=== PATIENT | female | born 1945 | race African-American/Black ===

== ENCOUNTER 2019-09-21 18:50 | Inpatient (IN) ==
[2019-09-21] MEDS ORDERED: SODIUM CHLORIDE 0.9% 500 ML IV STA (20:34)
[2019-09-21 20:57] LABS: Basophils % 0.4 % (0.0-0.8); Eosinophils # 0.1 10*3/uL (0.0-0.87); Eosinophils % 0.5 % (0.00-10.9); Hematocrit 44.9 VOL% (35.7-47.0); Hemoglobin 14.8 GM/DL (12.0-16.0); Immature Granulocytes % 0.3 %; Immature Granulocytes Absolute 0.03 #; Lymphocytes # 2.4 10*3/uL (1.4-4.0); Mean Corpuscular Volume 81.6 FL (87-102); Mean Platelet Volume 10.2 FL (9.6-12.0); Monocytes % 7.9 % (1.7-12.7); Neutrophils % 64.9 % (38.7-73.9); Platelet Count 237 T/CUMM (130-400); Red Cell Distribution Width 13.8 % (9.3-17.3)
[2019-09-21 20:58] LABS: White Blood Count 9.2 T/CUMM (4-12)
[2019-09-21 21:10] LABS: Albumin 4.3 G/DL (3.4-5.0); Bilirubin,Total 0.6 MG/DL (0.2-1.0); Calcium 9.8 MG/DL (8.5-10.1); Osmolality,Calculated 280.7 MOS/KG (273-304)
[2019-09-21 21:11] LABS: Troponin I 0.114 NG/ML (0.00-0.045)
[2019-09-21 21:54] LABS: Apearance,Urine Slightly Hazy (Clear); Bacteria,Urine Occasional /HPF (Few); Bilirubin,Urine Negative (Negative); Blood, Urine Negative (Negative); Glucose,Urine (UA) Negative (Negative); Hyaline Casts,Urine 52 /LPF (0-3); Ketones,Urine Negative (Negative); Nitrite,Urine Negative (Negative); Protein,Urine Negative; RBC,Urine 1 /HPF (0-4); Squamous Epithelial Cell,Urine Occasional /HPF (0-10); Urine Color Yellow (Yellow); Urine Specific Gravity 1.014 (1.001-1.035); Urine Urobilinogen < 2.0 EU/DL (0.2-1.0); WBC,Urine 1 /HPF (0-6)
[2019-09-21 22:02] LABS: Barbiturates Screen,Urine Negative (Negative); Benzodiazepines Screen,Urine Negative (Negative); Cannabinoid Screen,Urine Negative (Negative); Opiate Screen,Urine Positive (Negative); Phencyclidine Screen,Urine Negative (Negative)
[2019-09-21] MEDS ORDERED: GLUCAGON 1 MG VIAL IM PRN (23:34)
[2019-09-21] MEDS ORDERED: ACETAMINOPHEN 325 MG TABLET PO PRN (23:34)
[2019-09-21] MEDS ORDERED: guaiFENesin/DM ER 600-30 MG TABLET PO PRN (23:34)
[2019-09-21] MEDS ORDERED: ZALEPLON 5 MG CAPSULE PO PRN (23:34)
[2019-09-21] MEDS ORDERED: ALBUTEROL 2.5 MG/3 ML NEB RESP TX PRN (23:34)
[2019-09-21] MEDS ORDERED: NICOTINE 21 MG/24 HR PATCH TRANSDERM PRN (23:34)
[2019-09-21] MEDS ORDERED: hydrALAZINE 20 MG/1 ML VIAL IV PRN (23:34)
[2019-09-21] MEDS ORDERED: DOCUSATE SODIUM 100 MG CAPSULE PO PRN (23:34)
[2019-09-21] MEDS ORDERED: ONDANSETRON 4 MG/2 ML VIAL IV PRN (23:34)
[2019-09-21] MEDS ORDERED: DEXTROSE 50% 25 GM/50 ML VIAL IV PRN (23:34)
[2019-09-21] MEDS ORDERED: SODIUM POLYSTYRENE SULFATE 15 GM/60 ML BOTTLE PO ONE (23:38)
[2019-09-21] MEDS ORDERED: CALCIUM GLUCONATE 1,000 MG in SODIUM CHLORIDE 0.9% 100 ML IV ONE (23:39)
[2019-09-22] MEDS: SODIUM CHLORIDE 0.9% 1,000 ML IV SCH ×2 (00:26→09:50)
[2019-09-22 04:45] LABS: Basophils % 0.4 % (0.0-0.8); Eosinophils # 0.1 10*3/uL (0.0-0.87); Eosinophils % 1.2 % (0.00-10.9); Hematocrit 41.7 VOL% (35.7-47.0); Hemoglobin 13.5 GM/DL (12.0-16.0); Immature Granulocytes % 0.4 %; Immature Granulocytes Absolute 0.03 #; Lymphocytes # 1.7 10*3/uL (1.4-4.0); Lymphocytes % 25.1 % (21.3-54.2); Mean Corpuscular HGB Conc 32.4 GM/DL (32-36); Mean Corpuscular Volume 82.1 FL (87-102); Mean Platelet Volume 10.5 FL (9.6-12.0); Monocytes % 5.5 % (1.7-12.7); Neutrophils % 67.4 % (38.7-73.9); Platelet Count 217 T/CUMM (130-400); Red Blood Count 5.08 MC/CUMM (3.8-5.5); Red Cell Distribution Width 13.6 % (9.3-17.3); White Blood Count 6.9 T/CUMM (4-12)
[2019-09-22 05:28] LABS: Albumin 3.6 G/DL (3.4-5.0); Bilirubin,Total 0.8 MG/DL (0.2-1.0); Calcium 9.5 MG/DL (8.5-10.1); Risk Ratio 2.74; Thyroid Stimulating Hormone 2.27 uIU/ml (0.358-3.74); Total Protein 7.2 G/DL (6.4-8.3)
[2019-09-22] MEDS: INSULIN LISPRO 100 UNIT/ML SUBCUT SCH ×4 (08:37→22:00)
[2019-09-22] MEDS: PANTOPRAZOLE 40 MG TABLET PO SCH (08:39)
[2019-09-22] MEDS: HEPARIN 5,000 UNIT/1 ML VIAL SUBCUT SCH ×2 (11:13→22:37)
[2019-09-22] MEDS: DEXTROSE 5% NACL 0.45% 1,000 ML IV SCH ×2 (12:54→22:17)
[2019-09-22] MEDS: amLODIPine 10 MG TABLET PO SCH (16:12)
[2019-09-23 04:53] LABS: Basophils % 0.3 % (0.0-0.8); Eosinophils # 0.1 10*3/uL (0.0-0.87); Eosinophils % 0.8 % (0.00-10.9); Hematocrit 45.9 VOL% (35.7-47.0); Hemoglobin 15.1 GM/DL (12.0-16.0); Immature Granulocytes % 0.3 %; Immature Granulocytes Absolute 0.02 #; Lymphocytes # 1.5 10*3/uL (1.4-4.0); Lymphocytes % 22.9 % (21.3-54.2); Mean Corpuscular HGB Conc 32.9 GM/DL (32-36); Mean Corpuscular Volume 81.7 FL (87-102); Mean Platelet Volume 10.7 FL (9.6-12.0); Monocytes % 7.6 % (1.7-12.7); Neutrophils % 68.1 % (38.7-73.9); Platelet Count 233 T/CUMM (130-400); Red Blood Count 5.62 MC/CUMM (3.8-5.5); Red Cell Distribution Width 13.3 % (9.3-17.3); White Blood Count 6.6 T/CUMM (4-12)
[2019-09-23 05:13] LABS: Calcium 8.5 MG/DL (8.5-10.1); Osmolality,Calculated 280.7 MOS/KG (273-304)
[2019-09-23] MEDS ORDERED: POTASSIUM CHLORIDE 20 MEQ TABLET PO PRN (08:44)
[2019-09-23] MEDS: INSULIN LISPRO 100 UNIT/ML SUBCUT SCH ×2 (09:18→16:17)
[2019-09-23] MEDS: HEPARIN 5,000 UNIT/1 ML VIAL SUBCUT SCH (11:02)
[2019-09-23] MEDS: PANTOPRAZOLE 40 MG TABLET PO SCH (11:02)
[2019-09-23] MEDS: amLODIPine 10 MG TABLET PO SCH (11:02)
[2019-09-23] MEDS: DEXTROSE 5% NACL 0.45% 1,000 ML IV SCH (11:06)
[2019-09-23 16:24] VITALS: BP 162/96
== END 2019-09-23 12:35 | DRG 682 ==
LOC: N.ED 18:50 → N.EDINP 23:34 → N.5E 09-22 01:13
PROVIDERS: ADMIT Internal Medicine; ATTEND Internal Medicine

== ENCOUNTER 2019-11-10 14:25 | Observation (INO) ==
[2019-11-10 15:29] LABS: Basophils # 0.1 10*3/uL (0.0-0.2); Basophils % 0.7 % (0.0-0.8); Eosinophils # 0.1 10*3/uL (0.0-0.87); Eosinophils % 0.8 % (0.00-10.9); Hematocrit 44.8 VOL% (35.7-47.0); Hemoglobin 14.3 GM/DL (12.0-16.0); Immature Granulocytes % 0.3 %; Immature Granulocytes Absolute 0.02 #; Lymphocytes % 27.3 % (21.3-54.2); Mean Corpuscular HGB Conc 31.9 GM/DL (32-36); Mean Corpuscular Volume 82.7 FL (87-102); Mean Platelet Volume 9.7 FL (9.6-12.0); Neutrophils % 63.9 % (38.7-73.9); Platelet Count 283 T/CUMM (130-400); Red Blood Count 5.42 MC/CUMM (3.8-5.5); Red Cell Distribution Width 15.5 % (9.3-17.3); White Blood Count 7.3 T/CUMM (4-12)
[2019-11-10 15:33] LABS: Apearance,Urine CLEAR (Clear); Bacteria,Urine Occasional /HPF (Few); Bilirubin,Urine Negative (Negative); Blood, Urine Small mg/dL (Negative); Glucose,Urine (UA) Negative (Negative); Hyaline Casts,Urine 15 /LPF (0-3); Ketones,Urine 5 mg/dL (Negative); Mucus,Urine Occasional /LPF (Occasional); Nitrite,Urine Negative (Negative); Protein,Urine Negative; RBC,Urine 2 /HPF (0-4); Squamous Epithelial Cell,Urine Occasional /HPF (0-10); Urine Color Yellow (Yellow); Urine Specific Gravity 1.013 (1.001-1.035); Urine Urobilinogen < 2.0 EU/DL (0.2-1.0); WBC,Urine 1 /HPF (0-6)
[2019-11-10 15:52] LABS: Albumin 4.2 G/DL (3.4-5.0); Bilirubin,Total 0.9 MG/DL (0.2-1.0); Calcium 10.1 MG/DL (8.5-10.1); Osmolality,Calculated 286.1 MOS/KG (273-304)
[2019-11-10] MEDS ORDERED: SODIUM CHLORIDE 0.9% 1,000 ML IV STA (16:09)
[2019-11-10 18:42] LABS: Calcium 9.4 MG/DL (8.5-10.1); Osmolality,Calculated 286.1 MOS/KG (273-304)
[2019-11-10] MEDS ORDERED: GLUCAGON 1 MG VIAL IM PRN ×2 (20:25→23:37)
[2019-11-10] MEDS ORDERED: DEXTROSE 10% 250 ML BAG IV PRN (20:25)
[2019-11-10] MEDS ORDERED: ACETAMINOPHEN 325 MG TABLET PO PRN (20:31)
[2019-11-10] MEDS ORDERED: ONDANSETRON 4 MG/2 ML VIAL IV PRN (20:31)
[2019-11-10] MEDS ORDERED: ENOXAPARIN 30 MG/0.3 ML SYRINGE SUBCUT SCH (21:00)
[2019-11-10] MEDS: SODIUM CHLORIDE 0.9% 1,000 ML IV SCH (22:05)
[2019-11-10] MEDS ORDERED: DEXTROSE 50% 25 GM/50 ML SYRINGE IV PRN (23:37)
[2019-11-11] MEDS: INSULIN REGULAR 100 UNIT/ML SUBCUT SCH ×2 (01:14→08:51)
[2019-11-11 07:14] LABS: Basophils % 0.4 % (0.0-0.8); Eosinophils # 0.1 10*3/uL (0.0-0.87); Hematocrit 41.2 VOL% (35.7-47.0); Hemoglobin 13.3 GM/DL (12.0-16.0); Immature Granulocytes % 0.4 %; Immature Granulocytes Absolute 0.02 #; Lymphocytes # 1.3 10*3/uL (1.4-4.0); Lymphocytes % 25.3 % (21.3-54.2); Mean Corpuscular HGB Conc 32.3 GM/DL (32-36); Mean Corpuscular Volume 82.4 FL (87-102); Mean Platelet Volume 10.3 FL (9.6-12.0); Monocytes % 6.3 % (1.7-12.7); Neutrophils % 66.6 % (38.7-73.9); Platelet Count 242 T/CUMM (130-400); Red Cell Distribution Width 15.2 % (9.3-17.3); White Blood Count 5.1 T/CUMM (4-12)
[2019-11-11 07:40] LABS: Albumin 3.3 G/DL (3.4-5.0); Bilirubin,Total 0.8 MG/DL (0.2-1.0); Calcium 8.9 MG/DL (8.5-10.1); Osmolality,Calculated 282.8 MOS/KG (273-304); Total Protein 6.9 G/DL (6.4-8.3)
[2019-11-11 08:16] VITALS: BP 176/98
[2019-11-11] MEDS ORDERED: hydrALAZINE 20 MG/1 ML VIAL IV PRN (08:43)
[2019-11-11] MEDS ORDERED: atenoloL 25 MG TABLET PO SCH (09:00)
[2019-11-11] MEDS ORDERED: PANTOPRAZOLE 40 MG TABLET PO SCH (09:00)
[2019-11-11] MEDS: SODIUM CHLORIDE 0.9% 1,000 ML IV SCH (10:46)
== END 2019-11-11 12:41 ==
LOC: EDUNIT# → EDBD → N.ED 14:25 → N.EDINP 20:25 → INTOOBSV 20:25 → N.3E 21:26
PROVIDERS: ADMIT Family Medicine; ATTEND Family Medicine

== ENCOUNTER 2020-03-02 08:54 | Inpatient (IN) ==
[2020-03-02] MEDS ORDERED: ALBUTEROL 2.5 MG/3 ML NEB RESP TX STA (09:21)
[2020-03-02] MEDS ORDERED: hydrALAZINE 20 MG/1 ML VIAL IV STA (09:21)
[2020-03-02 09:55] LABS: Apearance,Urine Slightly Hazy (Clear); Bacteria,Urine Occasional /HPF (Few); Bilirubin,Urine Negative (Negative); Blood, Urine Moderate mg/dL (Negative); Glucose,Urine (UA) Negative (Negative); Hyaline Casts,Urine 10 /LPF (0-3); Ketones,Urine 5 mg/dL (Negative); Mucus,Urine Occasional /LPF (Occasional); Nitrite,Urine Negative (Negative); Protein,Urine 30 MG/DL; RBC,Urine 1 /HPF (0-4); Squamous Epithelial Cell,Urine Occasional /HPF (0-10); Urine Color Yellow (Yellow); Urine Specific Gravity 1.011 (1.001-1.035); Urine Urobilinogen < 2.0 EU/DL (0.2-1.0); WBC,Urine 1 /HPF (0-6)
[2020-03-02 10:14] LABS: Barbiturates Screen,Urine Negative (Negative); Benzodiazepines Screen,Urine Negative (Negative); Cannabinoid Screen,Urine Negative (Negative); Opiate Screen,Urine Negative (Negative); Phencyclidine Screen,Urine Negative (Negative)
[2020-03-02 10:44] LABS: Basophils % 0.2 % (0.0-0.8); Hematocrit 47.5 VOL% (35.7-47.0); Hemoglobin 15.5 GM/DL (12.0-16.0); Immature Granulocytes % 0.9 %; Immature Granulocytes Absolute 0.15 #; Lymphocytes # 0.5 10*3/uL (1.4-4.0); Lymphocytes % 3.2 % (21.3-54.2); Mean Corpuscular HGB Conc 32.6 GM/DL (32-36); Mean Corpuscular Volume 78.6 FL (87-102); Mean Platelet Volume 10.1 FL (9.6-12.0); Monocytes % 3.4 % (1.7-12.7); Neutrophils % 92.3 % (38.7-73.9); Platelet Count 158 T/CUMM (130-400); Red Blood Count 6.04 MC/CUMM (3.8-5.5); Red Cell Distribution Width 16.2 % (9.3-17.3); White Blood Count 16.3 T/CUMM (4-12)
[2020-03-02 11:02] LABS: Albumin 3.9 G/DL (3.4-5.0); Bilirubin,Total 1.9 MG/DL (0.2-1.0); Calcium 9.3 MG/DL (8.5-10.1); Osmolality,Calculated 287.7 MOS/KG (273-304); Total Protein 8.6 G/DL (6.4-8.3)
[2020-03-02 11:44] LABS: Band Neutrophils 5 % (0-10); Hypochromasia 1+; Lymphocytes 4 % (20-55); Microcytosis 1+; Segmented Neutrophils 89 % (50-85); Total Cells Counted 100
[2020-03-02 11:45] LABS: Platelet Estimate Adequate
[2020-03-02] MEDS ORDERED: DOCUSATE SODIUM 100 MG CAPSULE PO PRN ×2 (14:57→15:41)
[2020-03-02] MEDS ORDERED: LACTULOSE 20 GM/30 ML UDCUP PO PRN (14:57)
[2020-03-02] MEDS ORDERED: DEXTROSE 50% 25 GM/50 ML VIAL IV PRN (14:57)
[2020-03-02] MEDS ORDERED: ONDANSETRON 4 MG/2 ML VIAL IV PRN (14:57)
[2020-03-02] MEDS ORDERED: ACETAMINOPHEN 325 MG TABLET PO PRN (14:57)
[2020-03-02] MEDS ORDERED: GLUCAGON 1 MG VIAL IM PRN (14:57)
[2020-03-02] MEDS ORDERED: ZALEPLON 5 MG CAPSULE PO PRN (15:41)
[2020-03-02 16:08] LABS: ABG Base Excess -4.2 MMOL/L (-2.5-2.5); ABG HCO3 18.3 MMOL/L (20-26); ABG Oxygen Saturation 94.8 % (95-100); ABG PCO2 27.7 MM HG (35-48); ABG PH 7.438 (7.35-7.45); ABG PO2 73.3 MM HG (80-95); ABG TCO2 19.2 MMOL/L (23-27)
[2020-03-02 16:10] LABS: INR 1.1; PT Patient Result 12.1 SECS (9.8-11.9)
[2020-03-02] MEDS: LEVOFLOXACIN INJ 750 MG in PREMIX 1 EACH IV SCH (16:18)
[2020-03-02] MEDS: SODIUM CHLORIDE 0.9% 1,000 ML IV SCH (16:18)
[2020-03-02 16:28] LABS: CKMB % 1.3 %; Troponin I 0.362 NG/ML (0.00-0.045)
[2020-03-02] MEDS: busPIRone 5 MG TABLET PO SCH (21:40)
[2020-03-02] MEDS: OLANZapine 5 MG TABLET PO SCH (21:40)
[2020-03-02] MEDS: ENOXAPARIN 40 MG/0.4 ML SYRINGE SUBCUT SCH (21:40)
[2020-03-02] MEDS: GABAPENTIN 300 MG CAPSULE PO SCH (21:40)
[2020-03-02] MEDS: MIRTAZAPINE 30 MG TABLET PO SCH (21:40)
[2020-03-02] MEDS: guaiFENesin/DM ER 600-30 MG TABLET PO SCH (21:40)
[2020-03-02] MEDS: SERTRALINE 25 MG TABLET PO SCH (21:40)
[2020-03-02] MEDS: atenoloL 50 MG TABLET PO SCH (21:40)
[2020-03-02] MEDS: DIVALPROEX 500 MG TABLET PO SCH (21:40)
[2020-03-03] MEDS: SODIUM CHLORIDE 0.9% 1,000 ML IV SCH (05:00)
[2020-03-03 05:25] LABS: Basophils % 0.1 % (0.0-0.8); Eosinophils % 0.2 % (0.00-10.9); Hematocrit 39.6 VOL% (35.7-47.0); Hemoglobin 12.7 GM/DL (12.0-16.0); Immature Granulocytes % 0.8 %; Immature Granulocytes Absolute 0.11 #; Lymphocytes # 1.3 10*3/uL (1.4-4.0); Lymphocytes % 9.4 % (21.3-54.2); Mean Corpuscular HGB Conc 32.1 GM/DL (32-36); Mean Platelet Volume 11.1 FL (9.6-12.0); Neutrophils % 85.5 % (38.7-73.9); Platelet Count 131 T/CUMM (130-400); Red Blood Count 5.01 MC/CUMM (3.8-5.5); Red Cell Distribution Width 15.4 % (9.3-17.3); White Blood Count 13.8 T/CUMM (4-12)
[2020-03-03 05:36] LABS: CKMB % 1.2 %
[2020-03-03 05:48] LABS: Troponin I 0.186 NG/ML (0.00-0.045)
[2020-03-03 05:58] LABS: Albumin 2.5 G/DL (3.4-5.0); Bilirubin,Total 1.1 MG/DL (0.2-1.0); Calcium 8.4 MG/DL (8.5-10.1); Osmolality,Calculated 286.4 MOS/KG (273-304); Risk Ratio 2.78; Thyroid Stimulating Hormone 1.61 uIU/ml (0.358-3.74); Total Protein 6.8 G/DL (6.4-8.3); VLDL CHOLESTEROL 17.4 MG/DL
[2020-03-03 06:46] LABS: Anisocytosis 2+; Platelet Estimate Adequate
[2020-03-03 06:47] LABS: Macrocytosis Slight; Target Cells Few
[2020-03-03] MEDS: ENOXAPARIN 40 MG/0.4 ML SYRINGE SUBCUT SCH ×2 (08:50→20:50)
[2020-03-03] MEDS: busPIRone 5 MG TABLET PO SCH ×3 (08:50→22:14)
[2020-03-03] MEDS: guaiFENesin/DM ER 600-30 MG TABLET PO SCH ×2 (08:50→22:14)
[2020-03-03] MEDS: atenoloL 50 MG TABLET PO SCH ×2 (08:51→22:13)
[2020-03-03] MEDS: GABAPENTIN 300 MG CAPSULE PO SCH ×3 (08:51→22:14)
[2020-03-03] MEDS: SERTRALINE 25 MG TABLET PO SCH (08:51)
[2020-03-03] MEDS: PANTOPRAZOLE 40 MG TABLET PO SCH (08:51)
[2020-03-03] MEDS: hydrALAZINE 20 MG/1 ML VIAL IV PRN (16:37)
[2020-03-03] MEDS: OLANZapine 5 MG TABLET PO SCH (22:13)
[2020-03-03] MEDS: DIVALPROEX 500 MG TABLET PO SCH (22:14)
[2020-03-03] MEDS: MIRTAZAPINE 30 MG TABLET PO SCH (22:15)
[2020-03-04] MEDS: METOPROLOL TARTRATE 5 MG/5 ML VIAL IV SCH ×4 (00:20→18:32)
[2020-03-04] MEDS: SODIUM CHLORIDE 0.9% 1,000 ML IV SCH ×3 (05:10→17:33)
[2020-03-04 05:48] LABS: Basophils % 0.2 % (0.0-0.8); Eosinophils % 0.2 % (0.00-10.9); Hematocrit 40.6 VOL% (35.7-47.0); Hemoglobin 12.8 GM/DL (12.0-16.0); Immature Granulocytes % 0.6 %; Immature Granulocytes Absolute 0.07 #; Lymphocytes # 1.1 10*3/uL (1.4-4.0); Lymphocytes % 8.6 % (21.3-54.2); Mean Corpuscular HGB Conc 31.5 GM/DL (32-36); Mean Corpuscular Volume 80.1 FL (87-102); Mean Platelet Volume 11.7 FL (9.6-12.0); Monocytes % 4.8 % (1.7-12.7); Neutrophils % 85.6 % (38.7-73.9); Platelet Count 153 T/CUMM (130-400); Red Blood Count 5.07 MC/CUMM (3.8-5.5); Red Cell Distribution Width 15.7 % (9.3-17.3); White Blood Count 12.5 T/CUMM (4-12)
[2020-03-04 06:05] LABS: Albumin 2.7 G/DL (3.4-5.0); Bilirubin,Total 1.2 MG/DL (0.2-1.0); Calcium 8.6 MG/DL (8.5-10.1); Osmolality,Calculated 288.8 MOS/KG (273-304)
[2020-03-04] MEDS: SERTRALINE 25 MG TABLET PO SCH (08:15)
[2020-03-04] MEDS: ASPIRIN EC 325 MG TABLET PO SCH (08:15)
[2020-03-04] MEDS: PANTOPRAZOLE 40 MG TABLET PO SCH (08:15)
[2020-03-04] MEDS: guaiFENesin/DM ER 600-30 MG TABLET PO SCH ×2 (08:15→20:54)
[2020-03-04] MEDS: GABAPENTIN 300 MG CAPSULE PO SCH ×3 (08:15→20:54)
[2020-03-04] MEDS: busPIRone 5 MG TABLET PO SCH ×3 (08:15→20:54)
[2020-03-04] MEDS: atenoloL 50 MG TABLET PO SCH ×2 (08:15→20:55)
[2020-03-04] MEDS: ENOXAPARIN 40 MG/0.4 ML SYRINGE SUBCUT SCH ×2 (08:26→20:54)
[2020-03-04] MEDS: LEVOFLOXACIN INJ 750 MG in PREMIX 1 EACH IV SCH (16:58)
[2020-03-04] MEDS: MIRTAZAPINE 30 MG TABLET PO SCH (20:54)
[2020-03-04] MEDS: DIVALPROEX 500 MG TABLET PO SCH (20:54)
[2020-03-04] MEDS: OLANZapine 5 MG TABLET PO SCH (20:55)
[2020-03-05] MEDS: METOPROLOL TARTRATE 5 MG/5 ML VIAL IV SCH ×4 (01:48→18:09)
[2020-03-05] MEDS: SODIUM CHLORIDE 0.9% 1,000 ML IV SCH ×2 (05:42→09:36)
[2020-03-05] MEDS: GABAPENTIN 300 MG CAPSULE PO SCH ×4 (08:25→23:37)
[2020-03-05] MEDS: guaiFENesin/DM ER 600-30 MG TABLET PO SCH ×3 (08:25→23:37)
[2020-03-05] MEDS: busPIRone 5 MG TABLET PO SCH ×4 (08:25→23:37)
[2020-03-05] MEDS: atenoloL 50 MG TABLET PO SCH ×3 (08:25→23:37)
[2020-03-05] MEDS: ASPIRIN EC 325 MG TABLET PO SCH (08:25)
[2020-03-05] MEDS: SERTRALINE 25 MG TABLET PO SCH ×2 (08:25→08:34)
[2020-03-05] MEDS ORDERED: cloNIDine 0.3 MG/24 HR PATCH TRANSDERM SCH (09:00)
[2020-03-05] MEDS: hydrALAZINE 20 MG/1 ML VIAL IV PRN (09:33)
[2020-03-05 10:42] LABS: Basophils % 0.2 % (0.0-0.8); Eosinophils # 0.1 10*3/uL (0.0-0.87); Eosinophils % 0.6 % (0.00-10.9); Hematocrit 41.5 VOL% (35.7-47.0); Hemoglobin 13.4 GM/DL (12.0-16.0); Immature Granulocytes Absolute 0.11 #; Lymphocytes # 1.3 10*3/uL (1.4-4.0); Mean Corpuscular HGB Conc 32.3 GM/DL (32-36); Mean Corpuscular Volume 78.7 FL (87-102); Mean Platelet Volume 11.7 FL (9.6-12.0); Monocytes % 5.6 % (1.7-12.7); Neutrophils % 80.6 % (38.7-73.9); Platelet Count 164 T/CUMM (130-400); Red Blood Count 5.27 MC/CUMM (3.8-5.5); Red Cell Distribution Width 15.8 % (9.3-17.3); White Blood Count 10.8 T/CUMM (4-12)
[2020-03-05 11:02] LABS: Albumin 2.6 G/DL (3.4-5.0); Bilirubin,Total 0.9 MG/DL (0.2-1.0); Calcium 8.9 MG/DL (8.5-10.1); Osmolality,Calculated 280.3 MOS/KG (273-304); Total Protein 7.4 G/DL (6.4-8.3)
[2020-03-05] MEDS: MIRTAZAPINE 30 MG TABLET PO SCH (23:37)
[2020-03-05] MEDS: DIVALPROEX 500 MG TABLET PO SCH (23:37)
[2020-03-05] MEDS: ENOXAPARIN 40 MG/0.4 ML SYRINGE SUBCUT SCH (23:37)
[2020-03-05] MEDS: OLANZapine 5 MG TABLET PO SCH (23:38)
[2020-03-06] MEDS: METOPROLOL TARTRATE 5 MG/5 ML VIAL IV SCH ×5 (00:29→23:16)
[2020-03-06] MEDS: SODIUM CHLORIDE 0.9% 1,000 ML IV SCH ×3 (00:32→22:11)
[2020-03-06] MEDS ORDERED: TUBERCULIN SKIN TEST 0.1 ML SYRINGE INTRADERM ONE (07:56)
[2020-03-06] MEDS: LEVOFLOXACIN INJ 750 MG in PREMIX 1 EACH IV SCH (09:08)
[2020-03-06] MEDS: guaiFENesin/DM ER 600-30 MG TABLET PO SCH ×2 (09:18→22:07)
[2020-03-06] MEDS: ASPIRIN EC 325 MG TABLET PO SCH (09:18)
[2020-03-06] MEDS: GABAPENTIN 300 MG CAPSULE PO SCH ×3 (09:18→22:09)
[2020-03-06] MEDS: busPIRone 5 MG TABLET PO SCH ×3 (09:19→20:25)
[2020-03-06] MEDS: atenoloL 50 MG TABLET PO SCH ×2 (09:19→22:10)
[2020-03-06] MEDS: SERTRALINE 25 MG TABLET PO SCH (09:19)
[2020-03-06] MEDS ORDERED: ZIPRASIDONE 20 MG/1 ML VIAL IM PRN (10:19)
[2020-03-06] MEDS: hydrALAZINE 20 MG/1 ML VIAL IV PRN (10:42)
[2020-03-06] MEDS: MIRTAZAPINE 30 MG TABLET PO SCH (20:25)
[2020-03-06] MEDS: DIVALPROEX 500 MG TABLET PO SCH (22:06)
[2020-03-06] MEDS: ENOXAPARIN 40 MG/0.4 ML SYRINGE SUBCUT SCH (22:07)
[2020-03-06] MEDS: OLANZapine 5 MG TABLET PO SCH (22:08)
[2020-03-07] MEDS: METOPROLOL TARTRATE 5 MG/5 ML VIAL IV SCH ×3 (05:16→17:30)
[2020-03-07] MEDS: GABAPENTIN 300 MG CAPSULE PO SCH ×3 (08:58→21:33)
[2020-03-07] MEDS: OLANZapine 5 MG TABLET PO SCH (08:59)
[2020-03-07] MEDS: busPIRone 5 MG TABLET PO SCH ×3 (08:59→21:22)
[2020-03-07] MEDS: SERTRALINE 25 MG TABLET PO SCH (10:54)
[2020-03-07] MEDS: atenoloL 50 MG TABLET PO SCH ×2 (10:54→21:24)
[2020-03-07] MEDS: ASPIRIN EC 325 MG TABLET PO SCH (11:26)
[2020-03-07] MEDS: guaiFENesin/DM ER 600-30 MG TABLET PO SCH ×2 (11:26→21:22)
[2020-03-07] MEDS: SODIUM CHLORIDE 0.9% 1,000 ML IV SCH (11:28)
[2020-03-07] MEDS: DIVALPROEX 500 MG TABLET PO SCH (21:22)
[2020-03-07] MEDS: ENOXAPARIN 40 MG/0.4 ML SYRINGE SUBCUT SCH (21:39)
[2020-03-07] MEDS: MIRTAZAPINE 30 MG TABLET PO SCH (21:39)
[2020-03-08] MEDS: METOPROLOL TARTRATE 5 MG/5 ML VIAL IV SCH ×4 (01:27→17:25)
[2020-03-08] MEDS: SODIUM CHLORIDE 0.9% 1,000 ML IV SCH (03:36)
[2020-03-08 06:13] LABS: Calcium 8.4 MG/DL (8.5-10.1); Osmolality,Calculated 281.1 MOS/KG (273-304)
[2020-03-08] MEDS: OLANZapine 5 MG TABLET PO SCH (09:11)
[2020-03-08] MEDS: guaiFENesin/DM ER 600-30 MG TABLET PO SCH ×2 (09:11→21:39)
[2020-03-08] MEDS: GABAPENTIN 300 MG CAPSULE PO SCH ×4 (09:11→21:39)
[2020-03-08] MEDS: busPIRone 5 MG TABLET PO SCH ×4 (09:12→21:38)
[2020-03-08] MEDS: ASPIRIN EC 325 MG TABLET PO SCH (09:12)
[2020-03-08] MEDS: SERTRALINE 25 MG TABLET PO SCH (09:12)
[2020-03-08] MEDS: atenoloL 50 MG TABLET PO SCH ×2 (09:12→21:39)
[2020-03-08] MEDS ORDERED: MAGNESIUM SULF RIDER 2 GM in PREMIX 1 EACH IV PRN (09:42)
[2020-03-08] MEDS ORDERED: MAGNESIUM SULF RIDER 4 GM in PREMIX 1 EACH IV PRN (09:42)
[2020-03-08] MEDS: hydrALAZINE 25 MG TABLET PO ONE ×2 (11:03→11:39)
[2020-03-08] MEDS: hydrALAZINE 20 MG/1 ML VIAL IV PRN (11:36)
[2020-03-08] MEDS: POTASSIUM CHLORIDE RIDER 10 MEQ in PREMIX 1 EACH IV PRN ×3 (17:28→21:39)
[2020-03-08] MEDS: DIVALPROEX 500 MG TABLET PO SCH (21:39)
[2020-03-08] MEDS: MIRTAZAPINE 30 MG TABLET PO SCH (21:39)
[2020-03-08] MEDS: ENOXAPARIN 40 MG/0.4 ML SYRINGE SUBCUT SCH (21:39)
[2020-03-09] MEDS: METOPROLOL TARTRATE 5 MG/5 ML VIAL IV SCH ×3 (01:20→12:22)
[2020-03-09 08:03] LABS: Basophils % 0.5 % (0.0-0.8); Eosinophils # 0.2 10*3/uL (0.0-0.87); Eosinophils % 2.2 % (0.00-10.9); Hematocrit 39.6 VOL% (35.7-47.0); Hemoglobin 12.8 GM/DL (12.0-16.0); Immature Granulocytes % 1.2 %; Lymphocytes # 1.2 10*3/uL (1.4-4.0); Lymphocytes % 14.8 % (21.3-54.2); Mean Corpuscular HGB Conc 32.3 GM/DL (32-36); Mean Corpuscular Volume 78.1 FL (87-102); Mean Platelet Volume 10.3 FL (9.6-12.0); Monocytes % 6.4 % (1.7-12.7); Neutrophils % 74.9 % (38.7-73.9); Platelet Count 202 T/CUMM (130-400); Red Blood Count 5.07 MC/CUMM (3.8-5.5); Red Cell Distribution Width 16.1 % (9.3-17.3); White Blood Count 8.1 T/CUMM (4-12)
[2020-03-09 08:17] LABS: Calcium 8.9 MG/DL (8.5-10.1); Osmolality,Calculated 278.3 MOS/KG (273-304)
[2020-03-09] MEDS: atenoloL 50 MG TABLET PO SCH (10:05)
[2020-03-09] MEDS: busPIRone 5 MG TABLET PO SCH (10:37)
[2020-03-09] MEDS: ASPIRIN EC 325 MG TABLET PO SCH (10:37)
[2020-03-09] MEDS: guaiFENesin/DM ER 600-30 MG TABLET PO SCH (10:37)
[2020-03-09] MEDS: GABAPENTIN 300 MG CAPSULE PO SCH (10:38)
[2020-03-09] MEDS: OLANZapine 5 MG TABLET PO SCH (10:39)
[2020-03-09] MEDS: SERTRALINE 25 MG TABLET PO SCH (10:39)
[2020-03-09 11:31] VITALS: BP 109/53
[2020-03-09] MEDS ORDERED: APIXABAN 5 MG TABLET PO SCH (13:00)
== END 2020-03-09 14:33 | DRG 871 ==
LOC: EDBD → EDUNIT# → N.ED 08:54 → N.EDINP 14:57 → SUATTDRO 14:57 → N.2E 17:57 → N.3E 03-05 15:02
PROVIDERS: ADMIT Family Medicine; ATTEND Internal Medicine